=== PATIENT | female | born 1985 | race Caucasian/White ===

== ENCOUNTER 2021-11-02 07:39 | Outpatient (CLI) | payer BC | END 2021-11-02 07:40 | disposition home or self-care (01) | LOC: ULT 07:39 | PROVIDERS: ATTEND Nurse Practitioner Family | DX: R10.11 Right upper quadrant pain (principal); K80.20 Calculus of gallbladder without cholecystitis without obstruction; K76.0 Fatty (change of) liver, not elsewhere classified | CPT/HCPCS: 76700 ==

== ENCOUNTER 2021-11-10 12:44 | Outpatient (CLI) | payer BC | END 2021-11-10 12:45 | disposition home or self-care (01) | LOC: LABBT 12:44 | PROVIDERS: ATTEND Specialist | DX: K80.20 Calculus of gallbladder without cholecystitis without obstruction (principal); Z20.822 Contact with and (suspected) exposure to COVID-19 | CPT/HCPCS: 87811 ==

== ENCOUNTER 2021-11-13 06:52 | Day surgery (SDC) | payer BC ==
[2021-11-10 10:37] VITALS: BMI 38.0
[2021-11-13] MEDS ORDERED: Bupivacaine/Epinephrine 0.25% 30 ML VIAL ONE (07:20)
[2021-11-13] MEDS ORDERED: Ketorolac Tromethamine 30 MG/ML VIAL ONE (07:55)
[2021-11-13] MEDS ORDERED: Scopolamine 1.5 mg/72 hour Patch ONE (07:55)
[2021-11-13] MEDS ORDERED: Acetaminophen 500 MG TAB ONE (07:55)
[2021-11-13] MEDS ORDERED: Midazolam HCl 2 mg/2 ml Vial ONE (08:12)
[2021-11-13] MEDS ORDERED: Levofloxacin 500 mg/D5W 100 ml Premix Bag ONE (08:13)
[2021-11-13] MEDS ORDERED: Promethazine HCl 25 MG/ML VIAL ONE (08:15)
[2021-11-13] MEDS ORDERED: fentaNYL Citrate/PF 100 MCG/2 ML SYRINGE ONE (08:15)
[2021-11-13] MEDS ORDERED: Propofol 1,000 MG/100 ML VIAL IV ONE (08:15)
[2021-11-13] MEDS ORDERED: SUGAMMADEX SODIUM 200 MG/2 ML VIAL ONE (08:22)
[2021-11-13] MEDS ORDERED: Ondansetron PF 4 MG/2 ML Vial ONE (08:27)
[2021-11-13] MEDS ORDERED: Dexamethasone 20 MG/5 ML VIAL ONE (08:27)
[2021-11-13] MEDS ORDERED: Rocuronium Bromide 10 MG/ML (10ML VIAL) ONE (08:27)
[2021-11-13] MEDS ORDERED: Fentanyl 100 MCG/2 ML VIAL ONE ×2 (09:36→09:53)
[2021-11-13] MEDS ORDERED: Morphine 2 MG/ML VIAL ONE (10:51)
[2021-11-13] MEDS ORDERED: HYDROcodone/Acetaminophen 5/325 mg Tablet ONE (11:05)
== END 2021-11-13 12:40 | disposition home or self-care (01) ==
LOC: SDC 06:52
PROVIDERS: ATTEND Specialist
PROC: 0FT44ZZ Resection of Gallbladder, Percutaneous Endoscopic Approach (ICD-10-PCS; principal; 2021-11-13)
DX: K80.10 Calculus of gallbladder with chronic cholecystitis without obstruction (principal); M19.90 Unspecified osteoarthritis, unspecified site; F17.210 Nicotine dependence, cigarettes, uncomplicated; Z88.0 Allergy status to penicillin
CPT/HCPCS: 88304; C1713; J1100; J1885; J1956; J2250; J2270; J2405; J2550; J2704; J3010

== ENCOUNTER 2022-11-15 07:59 | Outpatient (CLI) | payer BC | END 2022-11-15 08:00 | disposition home or self-care (01) | LOC: BICMRI 07:59 | PROVIDERS: ATTEND Physician Assistant | DX: M47.22 Other spondylosis with radiculopathy, cervical region (principal); M54.2 Cervicalgia; R29.898 Other symptoms and signs involving the musculoskeletal system | CPT/HCPCS: 72141 ==

== ENCOUNTER 2024-04-01 07:42 | Outpatient (CLI) | payer BC | END 2024-04-01 07:43 | disposition home or self-care (01) | LOC: ULT 07:42 | DX: N92.6 Irregular menstruation, unspecified (principal) | CPT/HCPCS: 76856 ==

== ENCOUNTER 2025-01-16 08:11 | Emergency (ER) | payer BC ==
[2025-01-16] MEDS ORDERED: Acetaminophen 500 MG TAB ONE (08:51)
[2025-01-16] MEDS ORDERED: diphenhydrAMINE 50 MG/ML VIAL ONE (08:51)
[2025-01-16] MEDS ORDERED: Prochlorperazine 10 MG/2 ML VIAL ONE (08:52)
[2025-01-16 09:13] LABS: #Basophils 0.03 10x3/uL (0.0-0.2); #Eosinophils Less than 0.03 10x3/uL (0.0-0.7); #Monocytes 0.53 10x3/uL (0.11-0.59); #Neutrophils 8.79 10x3/uL (1.40-6.50); %Basophils 0.3 % (0.0-1.0); %Eosinophils 0.2 % (0.0-10.0); %Lymphocytes 12.3 % (21.0-51.0); %Monocytes 4.9 % (0.0-10.0); %Neutrophils 82.0 % (42.0-75.0); Hematocrit 41.4 % (36.0-47.0); Hemoglobin 13.3 g/dL (12.0-16.0); Mean Corpuscular Hemoglobin 29.3 pg (27.0-31.0); Mean Corpuscular Volume 91.2 fL (78.0-98.0); Platelet Count 279 10x3/uL (130-400); Red Blood Cell (RBC) Count 4.54 mill/uL (4.20-5.40); White Blood Cell (WBC) Count 10.72 10x3/uL (4.8-10.8)
[2025-01-16 09:19] LABS: BHCG - Serum Negative (NEGATIVE); Pregs Control Background? CLEAR/WHITE (CLR/WHITE); Pregs Control Bar Appear? YES (CONTROL BAR)
[2025-01-16 09:26] LABS: ALT (SGPT) 9 U/L (Less than 34); AST (SGOT) 16 U/L (11-34); Albumin 3.7 g/dL (3.1-4.5); Alkaline Phosphatase 54 U/L (40-110); Anion Gap 15 mmol/L (10-20); BUN (Urea Nitrogen) 9 mg/dL (7.0-18.7); Bilirubin, Total 0.6 mg/dL (0.3-1.2); Calc. Creatinine Clearance 0 mL/min (70-130); Calcium 9.1 mg/dL (7.8-10.44); Carbon Dioxide 24 mmol/L (22-29); Chloride 103 mmol/L (98-107); Globulin 3.9 g/dL (2.4-3.5); Glucose 103 mg/dL (70-105); Potassium 3.5 mmol/L (3.5-5.1); Sodium 138 mmol/L (136-145)
== END 2025-01-16 11:22 | disposition home or self-care (01) ==
LOC: ERS 08:11
DX: G43.909 Migraine, unspecified, not intractable, without status migrainosus (principal); R29.700 NIHSS score 0
CPT/HCPCS: 70450; 80053; 84703; 85025; 96374; 96375; J0780; J1200